=== PATIENT | female | born 1980 | race Caucasian/White ===

== ENCOUNTER 2018-10-26 15:29 | Emergency (ER) | payer MEDICAID ==
[~2018-10-26] VITALS: Ht 157.5 cm; Wt 74.4 kg
[2018-10-26 15:42] VITALS: Ht 157.5 cm; Wt 74.4 kg
[2018-10-26 16:29] LABS: BASOPHIL % 0.5 % (0-2); PLATELET COUNT 272 x10^3mcL (130-400); RED CELL DISTRIBUTION WIDTH 13.9 % (11.5-14.5)
[2018-10-26 17:18] VITALS: BP 109/51
== END 2018-10-26 18:08 | disposition home or self-care (01) ==
LOC: ED 15:29
PROVIDERS: Specialist
DX: O20.0 Threatened abortion (principal); Z3A.01 Less than 8 weeks gestation of pregnancy; Z98.890 Other specified postprocedural states
CPT/HCPCS: 36415